=== PATIENT | male | born 1955 | race African-American/Black ===

== ENCOUNTER 2017-03-11 13:36 | Emergency (ER) | payer MEDICAID ==
[~2017-03-11] VITALS: Ht 170.2 cm; Wt 79.0 kg
[2017-03-11] MEDS ORDERED: KETOROLAC 60MG/2ML VIAL IM ONE (15:00)
[2017-03-11 15:30] VITALS: BP 144/99
== END 2017-03-11 15:46 | disposition left against medical advice (07) ==
LOC: ER 13:36
DX: E11.40 Type 2 diabetes mellitus with diabetic neuropathy, unspecified (principal); I25.2 Old myocardial infarction; I10 Essential (primary) hypertension; F12.10 Cannabis abuse, uncomplicated; Z88.8 Allergy status to other drugs, medicaments and biological substances
CPT/HCPCS: 82962; 96372; 99283; J1885